=== PATIENT | male | born 1945 | race Caucasian/White ===

== ENCOUNTER → 2020-01-23 11:28 | Outpatient (BNVA) | payer MEDICARE, SELFPAY | PROVIDERS: PCP Nurse Practitioner Family; Visit Provider Nurse Practitioner Family | DX: M19.011 Primary osteoarthritis, right shoulder (principal) | CPT/HCPCS: 73030 ==

== ENCOUNTER → 2020-02-05 12:39 | Outpatient (BNVA) | payer MEDICARE, SELFPAY | PROVIDERS: PCP Nurse Practitioner Family; Visit Provider Nurse Practitioner Family | DX: S83.91XA Sprain of unspecified site of right knee, initial encounter (principal); X58.XXXA Exposure to other specified factors, initial encounter | CPT/HCPCS: 73562 ==

== ENCOUNTER 2020-03-19 12:44 | Outpatient (CLI) | payer MEDICARE, SELFPAY ==
--- NOTE | 2020-03-19 12:58 | MR_ITS ---
WS: [id number] MRI RIGHT SHOULDER HISTORY: PAIN IN RIGHT SHOULDER COMPARISON: Shoulder radiograph 01/23/2020 TECHNIQUE: Multiplanar sequences of the shoulder joint are submitted. Severe AC joint arthritis. Soft tissue and bone hypertrophy with significant encroachment upon the siegel praspinatus muscle and tendon. Large osteophytes extend superior and inferior from the joint space. F luid along the AC ligament. Small amount of fluid in the subacromial and subdeltoid bursa. No os acro mion. Humeral head is high riding and abuts the undersurface of the distal acromion with versus small osteophyte. Biceps tendon is not identified at the bicipital groove. There is a large amount of edema within the infraspinatus and supraspinatus muscles. Predominantly th e infraspinatus muscle. Sparing of the teres minor and subscapularis. There is also significant atrop hy of the supraspinatus most specifically. There are complete tears of the supraspinatus and infraspi natus tendons with retraction medial to the humeral head. Subscapularis tendon appears to be intact. Loss of cartilage over the humeral head. High riding humeral head from the glenoid. Moderate narrowin g of the glenohumeral joint space. Superior labrum is probably torn as it is not visualized. There is mild encroachment upon the subscapularis tendon. MR/MR shoulder RT wo con* [id number] IMPRESSION: 1. Severe AC joint arthritis with encroachment upon the supraspinatus muscle a nd tendon. 2. Complete tears with retraction of the infraspinatus and supraspinatus tendo ns. 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 Teres monse r has been spared. 3. Humeral head is high riding and abuts the undersurface of the distal acromi on. 4. Dislocated and possibly torn biceps tendon. Biceps tendon is not visualized at the bicipital groove.
== END 2020-03-19 12:45 | disposition home or self-care (01) ==
LOC: RADWPI 12:52
PROVIDERS: PCP Nurse Practitioner Family; Visit Provider Orthopaedic Surgery
DX: M13.811 Other specified arthritis, right shoulder (principal); M75.101 Unspecified rotator cuff tear or rupture of right shoulder, not specified as traumatic; S43.084A Other dislocation of right shoulder joint, initial encounter; X58.XXXA Exposure to other specified factors, initial encounter
CPT/HCPCS: 73221

== ENCOUNTER → 2020-06-26 09:25 | Outpatient (BNVA) | payer MEDICARE, SELFPAY | PROVIDERS: PCP Nurse Practitioner Family; Visit Provider Nurse Practitioner Family | DX: G56.01 Carpal tunnel syndrome, right upper limb (principal); M19.031 Primary osteoarthritis, right wrist | CPT/HCPCS: 73130 ==

== ENCOUNTER → 2020-07-16 11:37 | Outpatient (BNVA) | payer MEDICARE, SELFPAY | PROVIDERS: PCP Nurse Practitioner Family; Visit Provider Family Medicine | DX: E13.9 Other specified diabetes mellitus without complications (principal); M19.011 Primary osteoarthritis, right shoulder | CPT/HCPCS: 83036 ==

== ENCOUNTER → 2021-02-14 08:54 | Outpatient (BNVA) | payer MEDICARE, SELFPAY | PROVIDERS: PCP Nurse Practitioner Family; Visit Provider Nurse Practitioner Family | DX: E78.2 Mixed hyperlipidemia (principal) | CPT/HCPCS: 80061 ==

== ENCOUNTER → 2021-07-14 13:52 | Outpatient (BNVA) | payer MEDICARE, SELFPAY | PROVIDERS: PCP Nurse Practitioner Family; Visit Provider Internal Medicine Cardiovascular Disease | DX: I10 Essential (primary) hypertension (principal); E13.9 Other specified diabetes mellitus without complications; I49.9 Cardiac arrhythmia, unspecified; E78.5 Hyperlipidemia, unspecified; I44.7 Left bundle-branch block, unspecified; R53.83 Other fatigue | CPT/HCPCS: 99204 ==

== ENCOUNTER 2021-07-25 09:38 | Outpatient (CLI) | payer MEDICARE, SELFPAY ==
[2021-07-25 10:24] VITALS: BMI 24.1
--- NOTE | 2021-07-25 10:26 | NMCV_ITS ---
NM morales perf SPECT r/s* [id number] Gustavo Alford Age: 75 Gender: M : 1945 Exam Date: 07/25/2021 10:26 Ordering Phys: Dean iYn MD ([email or web address]) Technologist: ITZEL Blake Exam Location: [facility] Indications: SHORTNESS OF BREATH STRESS TEST Please [facility] IMAGE PROTOCOL Rest/Stress 1 Lexiscan Day Radiopharmaceutical Dose (mCi) Administration Site Administered by Rest: Tc-99m 10.7 IV ITZEL Nguyen Sestamibi Stress:Tc-99m 32.8 IV ITZEL Blake Sestamifrank Rest: 25-Jul-2021 60 Discovery 630 Stress: 25-Jul-2021 30 Discovery 630 0.4mg Lexiscan. Images obtained in supine and prone position. SPECT RESULTS Technical Quality: Excellent Raw Data Analysis: Normal Image Corrections: No attenuation or motion correction applied Summed Stress Score: 6 Summed Rest Score: 6 Summed Difference Score: 1 PERFUSION FINDINGS Moderate area of moderately decreased trCER uptake was noted in the mid anteroseptal, inferoseptal, apical septal and basal inferior wall segments. Some reversibility was noted in the basal inferior region, with the supine imaging. However with the prone imaging, there was no significant reversible defects. FUNCTIONAL RESULTS (calculated via Gated SPECT) Stress Image LV EF (%): 69 Stress EDV (mL):100 TID: 0.89 Stress ESV (mL):31 FUNCTIONAL FINDINGS: Segmental wall motion analysis revealing no gross wall motion abnormalities. IMPRESSIONS 1. Myocardial perfusion imaging revealing moderate area of persistent decreased tracer uptake in the inferoseptal, anteroseptal and apical septal regions, suggesting myocardial scarring in the distribution of the left anterior descending artery/right coronary artery. Small area of inconsistent reversible defect in the basal inferior wall region may suggest ischemia in the distribution of the right coronary artery. But the reliability of this finding is limited because of the inconsistency 2. Normal LV ejection fraction 69%. 3. LV wall motion analysis revealing no gross wall motion normalities. 4. Normal LV volume. No similar previous studies are available for comparison Dr Dean Yin MD [facility] (Electronically Signed) Final Date: 25 July 2021 15:56 S
--- NOTE | 2021-07-25 10:26 | ECG_ITS ---
[facility] Test Date: 2021-07-25 Pat Name: Gustavo Alford Department: Room: Gender: Male Translator Deaf: Yasmeen Reyes : 1945 Requested By: Dean Yin Order Number: [id number] [place] MD: Dean Yin M.D. Interpretive Statements NAME OF STUDY: LEXISCAN SESTAMIBI STRESS TEST INDICATION: [sob, ] PROCEDURE: At the baseline, the EKG revealed sinus bradycardia with nonspecific IVCD. Nonspecific ST-T changes in the inferior and lateral leads. Poor R wave progression.. The baseline blood pressure was 136/70 mm Hg with a heart rate of 56 beats/min. Lexiscan was infused over a period of 20 seconds. A total of 0.4 milligrams of Lexiscan was infused. The stress phase was continued for a total of 5 minutes. Heart rate at the end of the stress phase was 77 with a blood pressure 135/60. The EKG at the peak infusion revealed [no significant changes] []. Sestamibi was injected 20 seconds after the Lexiscan infusion. Blood pressure at the end of the recovery phase was 135/68 with a heart rate of 74 per minute. CONCLUSION: 1. No significant EKG changes with the[] LexiScan infusion[] 2. No LexiScan induced chest pain or cardiac arrhythmia [] 3. Normal blood pressure and heart rate response [] 4. Sestamibi/sestamibi perfusion scan pending; see separate report. Electronically Signed On 08-01-2021 11:31:45 CDT by Dean Yin M.D. [id number]
[2021-07-25] MEDS: regadenoson 0.4 Mg/5 ml Syringe IVP (11:30)
[2021-07-25 11:47] VITALS: BP 135/68; PULSE 72
== END 2021-07-25 09:39 | disposition home or self-care (01) ==
PROVIDERS: PCP Nurse Practitioner Family; Visit Provider Internal Medicine Cardiovascular Disease
DX: R06.02 Shortness of breath (principal)
CPT/HCPCS: 78452; 93017; A9500; J2785

== ENCOUNTER 2021-08-06 05:52 | Outpatient (CLI) | payer MEDICARE, SELFPAY ==
--- NOTE | 2021-08-06 06:15 | USCV_ITS ---
Gustavo Alford Age: 75 Gender: M : 1945 Exam Date: 08/06/2021 06:07 Ordering Phys: Dean Yin MD ([email or web address]) Technologist: RUPERTO Exam Location: [facility] [place] Indication: ARRHYTHMIA/ABNORMAL EKG BP: 120 / 80 HR: 57 Rhythm: Other Technical Quality: Adequate MEASUREMENTS (Male / Female) Normal Values 2D ECHO LV Diastolic Diameter PLAX 4.1 cm 4.2 - 5.9 / 3.9 - 5.3 cm LV Systolic Diameter PLAX 3.0 cm IVS Diastolic Thickness 1.8 cm 0.6 - 1.0 / 0.6 - 0.9 cm IVS Systolic Thickness 2.0 cm LVPW Diastolic Thickness 1.6 cm 0.6 - 1.0 / 0.6 - 0.9 cm LVPW Systolic Thickness 1.8 cm LVOT Diameter 2.0 cm LV Ejection Fraction 2D Teich 53.4 % LV Ejection Fraction MOD 2C 70.9 % LV Ejection Fraction 2C AL 71.7 % LA Diameter 3.0 cm LA Width 3.5 cm LA Height 3.3 cm RA Width 2.7 cm RA Height 4.3 cm Aorta at Sinotubular Diameter 3.0 cm M-MODE Aortic Annulus Diameter 2.6 cm LA Ao Ratio MM 1.1 MV E Point Septal Separation 0.3 cm DOPPLER AV Peak Velocity 112.3 cm/s LVOT Peak Velocity 83.0 cm/s AV Area Cont Eq vti 2.4 cm squared AV Area Cont Eq pk 2.4 cm squared MV Peak Velocity 99.0 cm/s MV Area PHT 3.0 cm squared Mitral E to A Ratio 0.8 MV E' Velocity 42.5 cm/s Mitral E to MV E' Ratio 10.8 Mitral E to LV E' Lateral Ratio 9.8 Mitral E to LV E' Septal Ratio 12.2 TV Peak E Velocity 51.0 cm/s Right Atrial Pressure 3.0 mmHg PV Peak Velocity 127.0 cm/s RV Acceleration Time 0.0 s RV Ejection Time 0.3 s RV AcT/ET 0.1 FINDINGS Left Ventricle Normal left ventricular size and systolic function, EF 68 %. Moderate left ventricular hypertrophy. No regional wall motion abnormalities. Grade I/IV diastolic dysfunction (abnormal relaxation filling pattern), normal to mildly elevated filling pressures. Right Ventricle The right ventricle is normal in size and function. Right Atrium The right atrium is normal in size. Left Atrium The left atrium is normal in size. Mitral Valve No gross abnormalities noted Aortic Valve Thickened aortic valve. Tricuspid Valve No gross abnormalities noted Pulmonic Valve Pulmonic valve not well visualized. Pericardium Normal pericardium without effusion. Aorta Normal ascending aorta dimension. CONCLUSIONS Normal left ventricular size and systolic function, EF 68 %. Moderate left ventricular hypertrophy. No regional wall motion abnormalities. Grade I/IV diastolic dysfunction (abnormal relaxation filling pattern), normal to mildly elevated filling pressures. Thickened aortic valve. No significant stenotic or regurgitant lesions There is no pericardial effusion. No previous study is available for comparison. Dr Dean Yin MD [facility] (Electronically Signed) Final Date: 06 August 2021 20:40 S
== END 2021-08-06 05:53 | disposition home or self-care (01) ==
LOC: RAD 05:56
PROVIDERS: Visit Provider Internal Medicine Cardiovascular Disease
DX: R06.00 Dyspnea, unspecified (principal)
CPT/HCPCS: 93306

== ENCOUNTER → 2021-12-23 08:18 | Outpatient (BNVA) | payer MEDICARE, SELFPAY | PROVIDERS: PCP Nurse Practitioner; Visit Provider Nurse Practitioner | DX: R53.83 Other fatigue (principal); E78.5 Hyperlipidemia, unspecified; E11.9 Type 2 diabetes mellitus without complications; I10 Essential (primary) hypertension; Z13.6 Encounter for screening for cardiovascular disorders | CPT/HCPCS: 80053; 80061; 82306; 83036; 84443; 85025 ==

== ENCOUNTER → 2022-12-10 11:04 | Outpatient (BNVA) | payer MEDICARE, SELFPAY | PROVIDERS: PCP Nurse Practitioner; Visit Provider Nurse Practitioner Family | DX: N39.0 Urinary tract infection, site not specified (principal); R53.83 Other fatigue; E11.9 Type 2 diabetes mellitus without complications; J06.9 Acute upper respiratory infection, unspecified; F03.90 Unspecified dementia, unspecified severity, without behavioral disturbance, psychotic disturbance, mood disturbance, and anxiety | CPT/HCPCS: 80053; 81000; 83036; 84439; 84443; 85025 ==

== ENCOUNTER → 2022-12-14 10:05 | Outpatient (BNVA) | payer MEDICARE, SELFPAY | PROVIDERS: PCP Nurse Practitioner; Visit Provider Nurse Practitioner | DX: R53.83 Other fatigue (principal); D72.819 Decreased white blood cell count, unspecified | CPT/HCPCS: 85025; 87426 ==

== ENCOUNTER 2022-12-15 12:08 | Emergency (ER) | payer MEDICARE, SELFPAY ==
[2022-12-15 12:34] VITALS: BMI 22.5
[2022-12-15 12:37] VITALS: BP 139/64; PULSE 59; RESP 15; TEMP 36.7; O2SAT 96
--- NOTE | 2022-12-15 12:41 | XR_ITS ---
WS: [id number] Exam: XR chest 1V portable [id number] Date/Time of Exam: 12/15/2022 12:45 PM Reason For Exam: COVID, not getting better No priors. There are groundglass infiltrates in the mid and lower RIGHT lung. The LEFT lung is clear. Cardiomediastinal silhouette is unremarkable for technique. No pleural effusion. Regional bony eleme nts are intact. IMPRESSION: 1. Groundglass infiltrates in the mid and lower RIGHT lung. No comparison exams. These changes could be chronic or could represent active pneumonia. COVID-pneumonia could have this appearance.
--- NOTE | 2022-12-15 12:51 | W.ED.COVID ---
HPI - COVID General: Chief Complaint: COVID symptoms Stated Complaint: tested + covid, weak, unable to eat or drink Time Seen by Provider: 12/15/22 12:33 History of Present Illness: 77-year-old male with dementia presents with his who is the primary historian. Patient tends to look to his for help answering questions. estimates that he has been sick since approximately November 30. He went to the clinic yesterday because he was not improving and tested positive for COVID-19. He had previously been seen on the and had a suppressed white blood cell count. At that time he was placed on Paxlovid and Augmentin empirically. Therefore he has been on antibiotics for about 3 days. states that at the beginning he had sore throat, low energy, low appetite, fever, and diarrhea. She reports that he just cannot seem to shake it. He continues to have fatigue, worsening of his dementia, lightheadedness, poor appetite. notes that he has not had much in the way of respiratory symptoms and his last fever has been greater than 48 hours ago. She began to get worried that there is something else going on and wanted to have a little bigger work-up to make sure that his organs and lungs and electrolytes were all okay. Patient is not a great historian but currently states other than fatigue he has no symptoms COVID 19 common symptoms: positive diarrhea; negative productive cough, dyspnea, nausea or vomiting COVID 19 other sytmptoms: negative chest pain COVID Results: SARS-CoV-2 Antigen (Rapid) positive (Negative) 12/14/22 10:05 Review of Systems General: Reports: 10 or more systems reviewed and unremarkable except in HPI and below Card: Reports: lightheadedness; Denies: chest pain, edema, swelling of feet/ankles, syncope or dyspnea on exertion Resp: Denies: dyspnea, productive cough, wheezing, pain on inspiration, hemoptysis or chest congestion GI: Reports: diarrhea; Denies: abdominal pain, nausea, vomiting, bloating, GI cramping or pain on defecation : Denies: urinary frequency Musc: Denies: neck pain, back pain, extremity pain, extremity swelling, joint pain or joint swelling Skin/Breast: Denies: rash or erythema Psych: Reports: loss of interest, change in appetite, memory loss and difficulty concentrating PFSH ED PFSH: Medical History Arrhythmia Diabetes 1.5, managed as type 1 Essential hypertension Gout Hypothyroid Osteoarthritis of right shoulder Right knee sprain Type 2 diabetes mellitus without complications Vitamin D deficiency Surgical History Hx of cataract extraction S/P arthroscopy of left knee Status post lumbar surgery Approximately 20+ years ago L4-L5 Family History Mother CAD (coronary artery disease) Family/Other CAD (coronary artery disease) Diabetes Lung disease Suicide Son Suicide Denies family history of Clotting disorder Dementia Chronic kidney disease (CKD) Anesthesia complication Bleeding disorder Cancer Stroke Social History Smoking and tobacco status: never smoked Alcohol intake: former Substance/Drug Use: never Physical Exam Const: COMMON NORMALS: no limitations, alert and well nourished EXAM LIMITATIONS: no altered mental status HENMT: COMMON NORMALS: normocephalic, atraumatic and external ears normal HEAD & SCALP: normocephalic and atraumatic EXTERNAL EAR: Yes external ears normal MOUTH: no muffled voice Eye: COMMON NORMALS: EOMs intact bilaterally, conjunctivae normal and no scleral icterus CONJUNCTIVA: Yes conjunctivae normal Neck/C-Spine: COMMON NORMALS: no JVD GENERAL: Yes normal visual inspection and Yes trachea midline Resp: COMMON NORMALS: normal respiratory effort, No retractions and No use of accessory muscles AUSCULTATION: rales (Minimal, bases, clear after 3 inspirations) Cardio: COMMON NORMALS: no JVD, regular rate and regular rhythm RATE: regular rate RHYTHM: regular rhythm GI: COMMON NORMALS: Soft to palpation and non-tender PALPATION: Yes Soft to palpation and No Guarding due to palpation present (GI) Extremity: COMMON NORMALS: normal to inspection Neuro: COMMON NORMALS: moves all extremities, no focal motor deficits and no sensory deficits noted SENSORIUM/ORIENTATION: Yes alert SPEECH: speech normal Psych: COMMON NORMALS: Normal thought process present, cooperative, normal affect and speech normal; negative for mental status grossly normal (Patient has a very poor memory especially for short-term recall) SPEECH: Yes normal speech THOUGHT PROCESS: Normal thought process present Skin: COMMON NORMALS: no rashes or lesions noted, turgor normal, no jaundice, no petechiae and no mottling GENERAL SKIN EXAM: no rashes or lesions noted and turgor normal Course Vital Signs: Vital signs: Vital Signs Temperature 98.0 F 12/15/22 12:37 Pulse Rate 59 L 12/15/22 12:37 Respiratory Rate 15 12/15/22 12:37 Blood Pressure 139/64 12/15/22 12:37 Pulse Oximetry 95 12/15/22 13:00 Oxygen Delivery Me thod Room Air 12/15/22 13:00 [facility] - COVID Medical Decision Making 77-year-old male with known coronavirus infection. He is on antivirals and antibiotics. He is eating and drinking but not very much. He surprisingly he has 2+ pulses, warm extremities, and seems to have okay skin turgor. The main complaint seems to be his overwhelming fatigue and the apparent worsening of his dementia since the COVID infection. I have ordered 2 L of IV fluids, some Toradol and Tylenol, Zofran, and we will check CBC, CMP, magnesium, CRP. I did order a chest x-ray as he had a few rales on his initial inspiration. He is 96% on room air at this time. Although I entered the situation with an open mind, I do not think there is a secondary pathology that is causing the symptoms. They do seem to be very well in keeping with COVID infection in an elderly patient with dementia. Update Chest x-ray single view my interpretation: Patient has interstitial ground glass infiltrates right greater than left. No consolidations. No significant effusions. No pneumothorax. CRP elevated to 44 and Ferritin 1121 representing significant bodily inflammation suggestive of acute phase of infection. Mild low NaCl with associated low osmolality. Only mildly changed from prior Na. BUN and creatinine normal. Other electrolytes okay. Patient is already taking Paxlovid and his prescriber has given him Augmentin. There is nothing else at this point that I can do to intervene other than provide the IV fluids here and Zofran and Tylenol for discharge. Because of his age and dementia status, hesitate to give any steroids. Patient can be discharged and follow-up with PCP. Lab Data 12/15/22 13:50 12/15/22 13:50 Laboratory Results WBC 5.35 10^3/uL (3.29-11.43) 12/15/22 13:50 Corrected WBC Cancelled 12/15/22 13:10 RBC 4.08 10^6/uL (3.85-5.65) 12/15/22 13:50 Hgb 13.20 g/dL (11.27-16.99) 12/15/22 13:50 Hct 38.8 % (37-53) 12/15/22 13:50 MCV 95.1 fl (82-101) 12/15/22 13:50 MCH 32.4 pg (27-33) 12/15/22 13:50 MCHC 34.0 g/dL (30-55) 12/15/22 13:50 RDW 11.9 % (12.1-15.1) L 12/15/22 13:50 Plt Count 225 10^3/cmm (157-399) 12/15/22 13:50 MPV 10.0 fL (7.4-10.4) 12/15/22 13:50 Gran % Cancelled 12/15/22 13:10 Neut % (Auto) 61.5 % 12/15/22 13:50 Lymph % (Auto) 19.6 % 12/15/22 13:50 [place] % (Auto) 14.2 % 12/15/22 13:50 Eos % (Auto) 0.4 % 12/15/22 13:50 Baso % (Auto) 0.4 % 12/15/22 13:50 Neut # (Auto) 3.29 10^3/uL (1.8-7.7) 12/15/22 13:50 Lymph # (Auto) 1.1 10^3/uL (0.8-4.8) 12/15/22 13:50 [place] # (Auto) 0.8 10^3/uL (0.2-0.9) 12/15/22 13:50 Eos # (Auto) 0.0 10^3/uL (0.0-0.8) 12/15/22 13:50 Baso # (Auto) 0.0 10^3/uL (0.0-0.1) 12/15/22 13:50 Absolute Gran (auto) Cancelled 12/15/22 13:10 Nucleated RBC % (auto) 0 % 12/15/22 13:50 Nucleated RBCs # 0.0 /100WBC 12/15/22 13:50 Sodium 131 mmol/L (136-145) L 12/15/22 13:50 Potassium 3.5 mmol/L (3.5-5.1) 12/15/22 13:50 Chloride 96 mmol/L (98-107) L 12/15/22 13:50 Carbon Dioxide 25 mmol/L (22-29) 12/15/22 13:50 Anion Gap 13.5 (5-19) 12/15/22 13:50 BUN 13 mg/dL (8-23) 12/15/22 13:50 Creatinine 0.9 mg/dL (0.7-1.2) 12/15/22 13:50 GFR Calculation Not Reportable 12/15/22 13:50 Glucose 132 mg/dL (65-115) H 12/15/22 13:50 Calculated Osmolality 274 mOsm/kg (285-295) L 12/15/22 13:50 Lactic Acid 1.3 mmol/L (0.5-2.2) 12/15/22 13:10 Calcium 8.1 mg/dL (8.5-10.5) L 12/15/22 13:50 Magnesium 1.9 mg/dL (1.7-2.3) 12/15/22 13:50 Ferritin 1121 ng/mL (30-400) H 12/15/22 13:50 Total Bilirubin 0.9 mg/dL (0.15-1.2) 12/15/22 13:50 AST 29 U/L (0-40) 12/15/22 13:50 ALT 25 U/L (0-41) 12/15/22 13:50 Alkaline Phosphatase 73 U/L (40-130) 12/15/22 13:50 C-Reactive Protein 44.8 mg/L (0.0-4.9) H 12/15/22 13:50 Total Protein 6.6 g/dL (6.6-8.7) 12/15/22 13:50 Albumin 3.1 g/dL (3.5-5.2) L 12/15/22 13:50 Globulin 3.5 g/dL (1.3-4.6) 12/15/22 13:50 SARS-CoV-2 Antigen (Rapid) positive (Negative) 12/14/22 10:05 Discharge Plan Discharge Patient Disposition: Home Clinical Impression: COVID-19 virus infection, Pneumonia due to COVID-19 virus Condition: Stable Prescriptions: New ondansetron 4 mg tablet,disintegrating 4 mg PO Q6H PRN (Reason: nausea and vomiting) Qty: 20 0RF acetaminophen 500 mg capsule 500 mg PO Q6H PRN (Reason: fever or pain) Qty: 30 0RF No Action aspirin 81 mg tablet,delayed release (DR/EC) 81 mg PO QAM sildenafil [Viagra] 50 mg tablet 50 mg PO DAILY MDD 50mg daily PRN (Reason: sexual activity) 90 Days Qty: 90 1RF Hold Instructions: Doctor's Order Rx Instructions: administer 30 minutes to 4 hours before activity amoxicillin-pot clavulanate 875-125 mg tablet 1 tab PO BID Qty: 14 0RF Rx Instructions: for 7 days (rx filled 12/10/22) Paxlovid 150-100 mg tablets,dose pack See Rx Instructions PO PER PKG DIR Qty: 20 0RF Rx Instructions: PO PER PKG DIR (DME) True Metrix Glucose Test Strip Strip See Rx Instructions .Route Qty: 100 5RF Rx Instructions: use to check blood sugar daily hydrocortisone 2.5 % cream 1 applic topical BID PRN (Reason: skin irritation) Qty: 30 2RF naproxen 500 mg tablet 500 mg PO BID PRN (Reason: Pain) benazepril-hydrochlorothiazide 10-12.5 mg tablet 1 tab PO QAM memantine 10 mg tablet 10 mg PO QAM Farxiga 10 mg tablet 10 mg PO QAM multivitamin Tablet 1 tab PO DAILY Imodium 2 mg Capsule 4 mg PO QAM Vitamin B-12 1,000 mcg Tablet 1,000 mcg PO DAILY atorvastatin 40 mg tablet 40 mg PO QAM Aricept 10 mg tablet 10 mg PO QAM levothyroxine 150 mcg tablet 150 mcg PO QAM Discharge Orders: Discharge ED (Routine); Ordered 12/15/22 Ordered By: Abdi Saavedra Referrals: Brenda Hamilton FNP [Primary Care Provider] - 4-7 days Patient Instructions: Opioid Safety, Pain Management Coding Level of Care Code ED Diploma Pharmacy Technician for g Chinmay
[2022-12-15 13:00] VITALS: O2SAT 95
[2022-12-15] MEDS: sodium chloride 0.9% 1,000 ML 999 ML IV (13:23)
[2022-12-15] MEDS: acetaminophen 1,000 MG/100 ML PIGGYBACK 400 MG IV (13:23)
[2022-12-15] MEDS: ketorolac 30 mg/mL INJ 10 MG IVP (13:24)
[2022-12-15] MEDS: ondansetron 2 mg/ML SDV 2 mL 4 MG IV (13:24)
[2022-12-15 13:38] LABS: Lactic Sepsis W/Reflex 1.3 mmol/L (0.5-2.2)
[2022-12-15 14:00] LABS: Basophils % 0.4 %; Eosinophils % 0.4 %; Hematocrit 38.8 % (37-53); Lymphocytes # 1.1 10^3/uL (0.8-4.8); Lymphocytes % 19.6 %; Mean Corpuscular Hemoglobin 32.4 pg (27-33); Mean Corpuscular Volume 95.1 fl (82-101); Monocytes # 0.8 10^3/uL (0.2-0.9); Monocytes % 14.2 %; Neutrophils # 3.29 10^3/uL (1.8-7.7); Neutrophils % 61.5 %; Nucleated Red Blood Cells % 0 %; Platelet Count 225 10^3/cmm (157-399); Red Blood Count 4.08 10^6/uL (3.85-5.65); Red Cell Distribution Width 11.9 % (12.1-15.1); White Blood Count 5.35 10^3/uL (3.29-11.43)
[2022-12-15 14:14] LABS: Alanine Aminotransferase 25 U/L (0-41); Albumin Level 3.1 g/dL (3.5-5.2); Alkaline Phosphatase 73 U/L (40-130); Anion Gap 13.5 (5-19); Aspartate Amino Transferase 29 U/L (0-40); Blood Urea Nitrogen 13 mg/dL (8-23); C Reactive Protein 44.8 mg/L (0.0-4.9); Calcium 8.1 mg/dL (8.5-10.5); Carbon Dioxide 25 mmol/L (22-29); Chloride 96 mmol/L (98-107); Globulin 3.5 g/dL (1.3-4.6); Glucose 132 mg/dL (65-115); Magnesium 1.9 mg/dL (1.7-2.3); Osmolality Calculated 274 mOsm/kg (285-295); Potassium 3.5 mmol/L (3.5-5.1); Sodium 131 mmol/L (136-145); Total Bilirubin 0.9 mg/dL (0.15-1.2); Total Protein 6.6 g/dL (6.6-8.7)
[2022-12-15 14:36] LABS: Ferritin 1121 ng/mL (30-400)
[2022-12-15 15:31] VITALS: BP 101/75; PULSE 53; O2SAT 96
== END 2022-12-15 15:33 | disposition home or self-care (01) ==
PROVIDERS: Emergency Provider Emergency Medicine; PCP Nurse Practitioner
DX: U07.1 COVID-19 (principal); J12.82 Pneumonia due to coronavirus disease 2019; Z79.82 Long term (current) use of aspirin; I10 Essential (primary) hypertension; E11.9 Type 2 diabetes mellitus without complications
CPT/HCPCS: 71045; 80053; 82728; 83605; 83735; 85025; 86140; 96374; 96375; 99284; J0131; J1885; J2405; J7030

== ENCOUNTER → 2023-05-13 13:42 | Outpatient (BNVA) | payer MEDICARE, SELFPAY | PROVIDERS: PCP Nurse Practitioner Family; Visit Provider Orthopaedic Surgery | DX: M19.011 Primary osteoarthritis, right shoulder (principal) | CPT/HCPCS: 73030 ==

== ENCOUNTER → 2023-06-09 11:46 | Outpatient (BNVA) | payer MEDICARE, SELFPAY | PROVIDERS: PCP Nurse Practitioner Family; Visit Provider Nurse Practitioner Family | DX: I10 Essential (primary) hypertension (principal); E11.9 Type 2 diabetes mellitus without complications; N40.0 Benign prostatic hyperplasia without lower urinary tract symptoms | CPT/HCPCS: 80053; 80061; 81000; 82728; 83036; 83550; 85025; G0103 ==

== ENCOUNTER → 2023-09-24 15:38 | Outpatient (BNVA) | payer MEDICARE, SELFPAY | PROVIDERS: PCP Nurse Practitioner Family; Visit Provider Nurse Practitioner Family | DX: S83.8X1A Sprain of other specified parts of right knee, initial encounter (principal); X58.XXXA Exposure to other specified factors, initial encounter; M25.561 Pain in right knee; M17.11 Unilateral primary osteoarthritis, right knee | CPT/HCPCS: 73562 ==

== ENCOUNTER 2023-10-26 09:47 | Outpatient (CLI) | payer MEDICARE, SELFPAY ==
--- NOTE | 2023-10-26 10:15 | MR_ITS ---
WS: [id number] MRI RIGHT KNEE NONCONTRAST TECHNIQUE: Axial PD, coronal PD fat sat, coronal PD, sagittal PD, and sagittal PD fat-sat images obta ined. CLINICAL INFORMATION: M25.561 - Pain in right knee COMPARISON: None. FINDINGS: Advanced degenerative arthritis medial joint compartment with hypertrophic changes along the joint li ne. Distal quadriceps and patellar tendons are intact. Hypertrophic patella. Advanced chondromalacia patella with a small amount of subchondral edema. Advanced narrowing of the patellofemoral articulati on. Medial and lateral patellar retinaculum intact. Small suprapatellar effusion. Mucoid degeneration of the ACL which appears intact. PCL appears intact. Calcified loose body anterio rly along the ACL insertion. Calcified loose body measures 1.5 x 1.1 cm. Ossified loose body along th e dorsal PCL. Medial and lateral collateral ligaments are intact. Normal popliteal fossa. Normal lateral meniscus. Advanced narrowing medial joint compartment with chronic thinning of the med ial meniscus. Chronic appearing high-grade tear of the medial meniscus with peripheral extrusion. MR/MR knee RT wo con* [id number] IMPRESSION: 1. Mucoid degeneration of the ACL. PCL appears intact. 2. Advanced narrowing medial joint compartment with [id number] articulation and subchondral edema. Grade IV chondromalacia. 3. Chronic thinning with chronic tear of the medial meniscus with peripheral e xtrusion. 4. Grade IV chondromalacia patella with small suprapatellar effusion. 5. Calcified loose body anteriorly along the ACL insertion. Calcified loose patrice dy measures 1.5 x 1.1 cm. Ossified loose body along the dorsal PCL. Outbridge grading: grade IV: full-thickness cartilage loss with underlying bone reactive changes
== END 2023-10-26 09:48 | disposition home or self-care (01) ==
LOC: RAD 09:48
PROVIDERS: PCP Nurse Practitioner Family; Visit Provider Nurse Practitioner Family
DX: M25.561 Pain in right knee (principal); S83.8X1A Sprain of other specified parts of right knee, initial encounter; M22.41 Chondromalacia patellae, right knee; M67.863 Other specified disorders of tendon, right knee; Y99.9 Unspecified external cause status
CPT/HCPCS: 73721

== ENCOUNTER → 2023-12-02 10:08 | Outpatient (BNVA) | payer MEDICARE, SELFPAY | PROVIDERS: PCP Nurse Practitioner Family; Visit Provider Student in an Organized Health Care Education/Training Program | DX: M17.11 Unilateral primary osteoarthritis, right knee; M25.561 Pain in right knee; M25.562 Pain in left knee | CPT/HCPCS: 73560; 73565; 99204 ==

== ENCOUNTER → 2024-01-06 08:04 | Outpatient (BNVA) | payer MEDICARE, SELFPAY | PROVIDERS: PCP Nurse Practitioner Family; Visit Provider Physician Assistant | DX: M17.11 Unilateral primary osteoarthritis, right knee (principal) | CPT/HCPCS: 20610; 99213; J7318 ==

== ENCOUNTER 2024-01-06 10:15 | Outpatient (CLI) | payer MEDICARE, SELFPAY | END 2024-01-06 10:16 | disposition home or self-care (01) | LOC: SPT 10:15 | PROVIDERS: PCP Nurse Practitioner Family; Visit Provider Physician Assistant | DX: Z46.89 Encounter for fitting and adjustment of other specified devices (principal); M23.91 Unspecified internal derangement of right knee; S83.8X1D Sprain of other specified parts of right knee, subsequent encounter; X58.XXXD Exposure to other specified factors, subsequent encounter; M17.11 Unilateral primary osteoarthritis, right knee | CPT/HCPCS: 97760; L1851 ==

== ENCOUNTER 2024-03-21 12:43 | Emergency (ER) | payer MEDICARE, SELFPAY ==
[2024-03-21 12:44] VITALS: BP 159/79; PULSE 70; RESP 18; TEMP 36.4; O2SAT 97; BMI 22.4
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
[2024-03-21 12:56] VITALS: O2SAT 99
[2024-03-21 14:44] VITALS: BP 155/62; PULSE 73; O2SAT 98
== END 2024-03-21 14:45 | disposition home or self-care (01) ==
PROVIDERS: Emergency Provider Family Medicine; PCP Nurse Practitioner Family
DX: S43.401A Unspecified sprain of right shoulder joint, initial encounter (principal); V49.59XA Passenger injured in collision with other motor vehicles in traffic accident, initial encounter; E11.9 Type 2 diabetes mellitus without complications; I10 Essential (primary) hypertension
CPT/HCPCS: 73030; 99283

== ENCOUNTER → 2024-07-07 07:54 | Outpatient (BNVA) | payer MEDICARE, SELFPAY | PROVIDERS: PCP Nurse Practitioner Family; Visit Provider Physician Assistant | DX: M17.11 Unilateral primary osteoarthritis, right knee (principal); M23.91 Unspecified internal derangement of right knee; Z71.89 Other specified counseling | CPT/HCPCS: 20610; 99213; J7318 ==

== ENCOUNTER → 2024-08-02 09:14 | Outpatient (BNVA) | payer MEDICARE, SELFPAY | PROVIDERS: PCP Nurse Practitioner Family; Visit Provider Nurse Practitioner Family | DX: I10 Essential (primary) hypertension (principal); N40.0 Benign prostatic hyperplasia without lower urinary tract symptoms; E11.9 Type 2 diabetes mellitus without complications | CPT/HCPCS: 80053; 80061; 81000; 83036; 85025; 85651; G0103 ==

== ENCOUNTER 2024-11-27 17:40 | Emergency (ER) | payer MEDICARE, SELFPAY ==
[2024-11-27 17:52] VITALS: BP 97/51; PULSE 40; RESP 16; TEMP 36.3; O2SAT 97; BMI 22.8
--- NOTE | 2024-11-27 17:59 | ECG_ITS ---
[email or web address] 2024-11-27 Pat Name: Gustavo Alford Department: Room: Gender: Male Director Consumer Affairs: : 1945 Requested By: Shira Gallegos Order Number: [id number] Everett MD: Dean Yin M.D. Measurements Intervals [place] Rate: 68 P: 62 [place]: 146 QRS: -68 QRSD: 161 T: 81 QT: 476 QTc: 507 Interpretive Statements SINUS RHYTHM WITH FREQUENT VENTRICULAR PREMATURE COMPLEXES WITH OCCASIONAL SUPRAVENTRICULAR PREMATURE COMPLEXES LEFT AXIS DEVIATION [QRS AXIS < -30] INTRAVENTRICULAR CONDUCTION DELAY [130+ ms QRS DURATION] No previous ECG available for comparison Electronically Signed On 11-27-2024 22:44:26 CDT by Dean Yin M.D. [id number] [id number]
--- NOTE | 2024-11-27 18:11 | ED_ITS ---
HPI - Arrhythmia/Palpitations 2 General: Chief Complaint: Arrhythmia/Palpitations Stated Complaint: R arm pain through fingers, chills, low hr Time Seen by Provider: 11/27/24 18:04 History of Present Illness: 79-year-old male with a history of demen tia, type 2 diabetes, hypothyroidism, hypertension, and gout who presents the emergency room after having had diaphoresis and palpitations at around 4 AM this morning. He went to his doctor's office this afternoon and they sent him to the emergency room. He had some pain in his right arm. He has a bad right shoulder and this is not uncommon but he was diaphoretic the states and so she brought him to the doctor this afternoon who then sent him here for testing . He currently has no complaints. states he will not remember what happened this morning. Currently no chest pain. No shoulder pain. No abdominal pain. No vomiting. He does have frequent PVCs on EKG. Related Data Home Medications ?Medication ?Instructions ?Recorded ?Confirmed aspirin 81 mg tablet,delayed 81 mg PO QAM 07/08/2103/13 release Previous Rx's ?Medication ?Instructions ?Recorded blood sugar diagnostic (True #100 ea 09/16/23 Metrix Glucose Test Strip) blood-glucose meter (Accu-Chek #1 ea 01/03/24 Guide Me Glucose Meter) right knee medial court assistant brace #1 ea 01/06/24 diclofenac sodium 75 mg 75 mg PO Q12H PRN pain #20 t abs 03/21/24 tablet,delayed release dapagliflozin propanediol 10 mg 10 mg PO DAILY #30 tab s 10/27/24 tablet (Farxiga) atorvastatin 40 mg tablet See Rx Instructions .Route 0 10/31/24 .COMPLEX #90 tabs benazepril 10 See Rx Instructions .Route 0 10/31/24 mg-hydrochlorothiazide 12.5 mg .COMPLEX #90 tabs tablet donepezil 10 mg tablet See Rx Instructions .Route 0 10/31/24 .COMPLEX #90 tabs levothyroxine 150 mcg tablet 150 mcg PO DAILY #90 tabs 10/31/24 memantine 10 mg tablet See Rx Instructions .Route 0 10/31/24 .COMPLEX #90 tabs Allergies Allergy/AdvReac Type Severity Reaction Status Date / Time No Known Allergies Allergy Verified 11/27/24 15:17 Review of Systems 2 Narrative: Constitutional symptoms: Negative except as documented in HPI. Skin symptoms: Negative except as documented in HPI. Eye symptoms: Negative except as documented in HPI. ENMT symptoms: Negative except as documented in HPI. Respiratory symptoms: Negative except as documented in HPI. Cardiovascular symptoms: Negative except as documented in HPI. Gastrointestinal symptoms: Negative except as documented in HPI. Genitourinary symptoms: Negative except as documented in HPI. Musculoskeletal symptoms: Negative except as documented in HPI. Neurologic symptoms: Negative except as documented in HPI. Psychiatric symptoms: Negative except as documented in HPI. Endocrine symptoms: Negative except as documented in HPI. PFSH ED 2 PFSH: Medical History (Updated 11/27/24 @ 20:06 by Shira Pang MD) Fatigue Cellulitis, toe Right knee pain Vitamin D deficiency Arrhythmia Right knee sprain Osteoarthritis of right shoulder Hypothyroid Essential hypertension Gout Diabetes 1.5, managed as type 1 Type 2 diabetes mellitus without complications Surgical History Hx of cataract extraction S/P arthroscopy of left knee Status post lumbar surgery Approximately 20+ years ago L4-L5 Family History Mother CAD (coronary artery disease) Family/Other CAD (coronary artery disease) Diabetes Lung disease Suicide Son Suicide Denies family history of Clotting disorder Dementia Chronic kidney disease (CKD) Anesthesia complication Bleeding disorder Cancer Stroke Social History Smoking and tobacco/nicotine status: never used tobacco/nicotine Alcohol intake: former Substance/Drug Use: never Current occupation: retired Physical Exam 2 Narrative: EXAM NARRATIVE: General: Alert, no acute distress. Skin: Warm, dry. Head: Normocephalic, atraumatic. Neck: Supple, trachea midline. Eye: Extraocular movements are intact. Ears, nose, mouth and throat: mucosa moist. Cardiovascular: Regular, Normal peripheral perfusion. Respiratory: Lungs are clear to auscultation, respirations are non-labored, breath sounds are equal, Symmetrical chest wall expansion. Gastrointestinal: Soft, Nontender, Non distended Musculoskeletal: Normal ROM, no deformity. Neurological: Alert and oriented to his , No focal neurological deficit observed. Psychiatric: Cooperative, appropriate mood & affect. Course 2 Vital Signs: Vital signs: Vital Signs Temperature 97.4 F L 11/27/24 17:52 Pulse Rate 62 11/27/24 19:12 Respiratory Rate 17 11/27/24 19:12 Blood Pressure 126/70 11/27/24 19:12 Pulse Oximetry 96 11/27/24 19:12 Oxygen Delivery Me thod Room Air 11/27/24 18:21 MDM - Arrhythmia/Palpitations Medical Decision Making Differential diagnosis for patient with chest pain includes but is not limited to and based on the above HPI, review of systems and physical exam: Pneumonia. unstable angina. angina. Acute coronary syndrome / [place]. Pulmonary embolism. Costochondritis / musculoskeletal. Pleurisy. Pericarditis. Esophageal spasm. Pancreatis. Cholecystitis. Orders placed to evaluate differential diagnosis based on the above differential, HPI and physical exam EKG: Time 1759. Rate 68. Normal sinus rhythm, No ST-T changes, frequent PVCs, normal ID & QRS intervals, This was reviewed and interpreted by myself the ER physician at 1805 Lab Review: Laboratory results were reviewed and interpreted by myself the emergency room physician. Lab work is unremarkable. No leukocytosis. No anemia. No renal failure. Serial cardiac markers are negative. Chest x-ray: No acute process. No infiltrate. No pneumothorax. This was reviewed and interpreted by myself the emergency room physician. I also reviewed the radiology report. I reviewed the patient's medical record. Reexamination: Patient remained stable. No increased work of breathing. No altered mental status. No focal motor deficits. Assessment and plan: Noncardiac chest pain - Discharged home - Discussed plan with patient. Answered any questions. - Evaluation and treatment of this problem were appropriate in the emergency setting. Lab Data 11/27/24 18:09 11/27/24 18:09 Radiology Impressions Chest X-Ray 11/27/24 18:15 IMPRESSION: No acute findings. Laboratory Results WBC 6.65 10^3/uL (3.29-11.43) 11/27/24 18:09 RBC 4.44 10^6/uL (3.85-5.65) 11/27/24 18:09 Hgb 14.20 g/dL (11.27-16.99) 11/27/24 18:09 Hct 41.7 % (37-53) 11/27/24 18:09 MCV 93.9 fl (82-101) 11/27/24 18:09 MCH 32.0 pg (27-33) 11/27/24 18:09 MCHC 34.1 g/dL (30-55) 11/27/24 18:09 RDW 11.9 % (12.1-15.1) L 11/27/24 18:09 Plt Count 231 10^3/cmm (157-399) 11/27/24 18:09 MPV 10.8 fL (7.4-10.4) H 11/27/24 18:09 Neut % (Auto) 56.0 % 11/27/24 18:09 Lymph % (Auto) 29.2 % 11/27/24 18:09 [place] % (Auto) 10.8 % 11/27/24 18:09 Eos % (Auto) 2.3 % 11/27/24 18:09 Baso % (Auto) 0.9 % 11/27/24 18:09 Neut # (Auto) 3.73 10^3/uL (1.8-7.7) 11/27/24 18:09 Lymph # (Auto) 1.9 10^3/uL (0.8-4.8) 11/27/24 18:09 [place] # (Auto) 0.7 10^3/uL (0.2-0.9) 11/27/24 18:09 Eos # (Auto) 0.2 10^3/uL (0.0-0.8) 11/27/24 18:09 Baso # (Auto) 0.1 10^3/uL (0.0-0.1) 11/27/24 18:09 Nucleated RBC % (auto) 0 % 11/27/24 18:09 Nucleated RBCs # 0.0 /100WBC 11/27/24 18:09 Sodium 136 mmol/L (136-145) 11/27/24 18:09 Potassium 4.0 mmol/L (3.5-5.1) 11/27/24 18:09 Chloride 101 mmol/L (98-107) 11/27/24 18:09 Carbon Dioxide 23 mmol/L (22-29) 11/27/24 18:09 Anion Gap 16.0 (5-19) 11/27/24 18:09 BUN 15 mg/dL (8-23) 11/27/24 18:09 Creatinine 1.0 mg/dL (0.7-1.2) 11/27/24 18:09 GFR Calculation Not Reportable 11/27/24 18:09 Glucose 170 mg/dL (65-115) H 11/27/24 18:09 Calculated Osmolality 287 mOsm/kg (285-295) 11/27/24 18:09 Calcium 9.0 mg/dL (8.5-10.5) 11/27/24 18:09 Total Bilirubin 1.1 mg/dL (0.15-1.2) 11/27/24 18:09 AST 20 U/L (0-40) 11/27/24 18:09 ALT 17 U/L (0-41) 11/27/24 18:09 Alkaline Phosphatase 79 U/L (40-130) 11/27/24 18:09 Troponin T Baseline 26 ng/L (0-15) H 11/27/24 18:09 Troponin T 120 Minute 24.86 ng/L (0-15) H 11/27/24 19:27 Delta Troponin T -1.14 ABS# (0-10) L 11/27/24 19:27 NT-Pro-B Natriuret Pep 952 pg/mL (0-450) H 11/27/24 18:09 Total Protein 6.7 g/dL (6.6-8.7) 11/27/24 18:09 Albumin 4.1 g/dL (3.5-5.2) 11/27/24 18:09 Globulin 2.6 g/dL (1.3-4.6) 11/27/24 18:09 All radiology interpretation(s) finalized by discharge Discharge Plan Discharge Patient Disposition: Home Clinical Impression: Non-cardiac chest pain Condition: Stable Prescriptions: No Action aspirin 81 mg tablet,delayed release (DR/EC) 81 mg PO QAM (DME) right knee medial court assistant brace See Rx Instructions .Route .MEDSUPPLY Qty: 1 0RF Rx Instructions: As directed (DME) True Metrix Glucose Test Strip Strip See Rx Instructions .Route Qty: 100 5RF Rx Instructions: use to check blood sugar daily (DME) blood-glucose meter [Accu-Chek Guide Me Glucose Mtr] [facility] See Rx Instructions .ROUTE .COMPLEX Qty: 1 0RF Dose Instruction: USE DAILY Rx Instructions: USE DAILY dapagliflozin propanediol [Farxiga] 10 mg tablet 10 mg PO DAILY Qty: 30 2RF atorvastatin 40 mg tablet See Rx Instructions .ROUTE .COMPLEX Qty: 90 1RF Dose Instruction: TAKE 1 TABLET BY MOUTH EVERY MORNING Rx Instructions: TAKE 1 TABLET BY MOUTH EVERY MORNING benazepril-hydrochlorothiazide 10-12.5 mg tablet See Rx Instructions .ROUTE .COMPLEX Qty: 90 1RF Dose Instruction: TAKE 1 TABLET BY MOUTH EVERY DAY Rx Instructions: TAKE 1 TABLET BY MOUTH EVERY DAY donepezil 10 mg tablet See Rx Instructions .ROUTE .COMPLEX Qty: 90 0RF Dose Instruction: TAKE 1 TABLET BY MOUTH EVERY DAY Rx Instructions: TAKE 1 TABLET BY MOUTH EVERY DAY levothyroxine 150 mcg tablet 150 mcg PO DAILY Qty: 90 1RF Rx Instructions: TAKE 1 TABLET BY MOUTH EVERY DAY memantine 10 mg tablet See Rx Instructions .ROUTE .COMPLEX Qty: 90 1RF Dose Instruction: TAKE 1 TABLET BY MOUTH EVERY MORNING Rx Instructions: TAKE 1 TABLET BY MOUTH EVERY MORNING diclofenac sodium 75 mg tablet,delayed release (DR/EC) 75 mg PO Q12H PRN (Reason: pain) Qty: 20 0RF Discharge Orders: Discharge ED (Routine); Ordered 11/27/24 Ordered By: Shira Pang Referrals: LUPIS Aguilar, TRAINING REPRESENTATIVE [Primary Care Provider, Family Practice] Patient Instructions: Noncardiac Chest Pain (ED), Opioid Safety, Pain Management, Patient Portal & Nhung Instructions Activity Restrictions/Additional Instructions: Thank you for choosing [facility] for your healthcare needs today. You have been screened and evaluated and felt safe for discharge. Health conditions do change or evolve sometimes and as such it is important that you follow up with your Primary Doctor to be re checked, 3-5 days is a general good time frame for follow up. You are always welcome to return to the ED for re assessment if your symptoms are worsening or you have new concerns Print Language: Czech Coding Level of Care Code ED Recreational Vehicle Repairer for Zoe Moy
--- NOTE | 2024-11-27 18:15 | XRR_ITS ---
PROCEDURE INFORMATION: Exam: XR Chest Exam date and time: 11/27/2024 6:18 PM Age: 79 years old Clinical indication: Pain; Chest pressure and right-sided; Additional info: Chest pain TECHNIQUE: Imaging protocol: Radiologic exam of the chest. Views: 1 view. COMPARISON: CR XR chest 1V portable [id number] 12/15/2022 12:50 PM FINDINGS: Single view. Lungs: Unremarkable. No consolidation. Few scattered pulmonary granulomas. Pleural spaces: Unremarkable. No pleural effusion. No pneumothorax. Heart/Mediastinum: Aortic atherosclerosis. Unremarkable. No cardiomegaly. Bones/joints: Unremarkable. XR/XR chest 1V portable [id number] IMPRESSION: No acute findings.
[2024-11-27 18:18] LABS: Hematocrit 41.7 % (37-53); Hemoglobin 14.20 g/dL (11.27-16.99); Mean Corpuscular HGB Conc 34.1 g/dL (30-55); Mean Corpuscular Hemoglobin 32.0 pg (27-33); Mean Corpuscular Volume 93.9 fl (82-101); Nucleated Red Blood Cells % 0 %; Platelet Count 231 10^3/cmm (157-399); Red Blood Count 4.44 10^6/uL (3.85-5.65); White Blood Count 6.65 10^3/uL (3.29-11.43)
[2024-11-27 18:21] VITALS: BP 104/59; PULSE 62; RESP 15; O2SAT 94
[2024-11-27 18:38] LABS: Troponin(5th) Baseline 26 ng/L (0-15)
[2024-11-27 18:54] LABS: Alanine Aminotransferase 17 U/L (0-41); Albumin Level 4.1 g/dL (3.5-5.2); Alkaline Phosphatase 79 U/L (40-130); Anion Gap 16.0 (5-19); Aspartate Amino Transferase 20 U/L (0-40); Blood Urea Nitrogen 15 mg/dL (8-23); Calcium 9.0 mg/dL (8.5-10.5); Carbon Dioxide 23 mmol/L (22-29); Chloride 101 mmol/L (98-107); Creatinine Clr Calc Pharmacy 67.2088; Globulin 2.6 g/dL (1.3-4.6); Glucose 170 mg/dL (65-115); NT Pro B Type Natriuretic Pept 952 pg/mL (0-450); Osmolality Calculated 287 mOsm/kg (285-295); Potassium 4.0 mmol/L (3.5-5.1); Sodium 136 mmol/L (136-145); Total Protein 6.7 g/dL (6.6-8.7)
[2024-11-27 19:12] VITALS: BP 126/70; PULSE 62; RESP 17; O2SAT 96
[2024-11-27 19:52] LABS: Troponin 5 2HR 24.86 ng/L (0-15)
[2024-11-27 19:58] LABS: Troponin 5 2HR Delta -1.14 ABS# (0-10)
[2024-11-27 20:00] VITALS: BP 136/76; PULSE 64; O2SAT 94
--- NOTE | 2024-11-27 20:05 | ECG_ITS ---
[facility] Date: 2024-11-27 Pat Name: Gustavo Alford Department: Room: Gender: Male Marketing Production Specialist: : 1945 Requested By: Shira Gallegos Order Number: [id number] Everett MD: AN COLEMAN Measurements Intervals [place] Rate: 56 P: 54 [place]: 161 QRS: -61 QRSD: 170 T: 79 QT: 524 QTc: 506 Interpretive Statements SINUS BRADYCARDIA LEFT AXIS DEVIATION [QRS AXIS < -30] LEFT BUNDLE BRANCH BLOCK [120+ ms QRS DURATION, 80+ ms Q/S IN V1/V2, 85+ ms R IN I/aVL/V5/V6] Compared to ECG 11/27/2024 17:59:52 Left bundle-branch block now present Sinus rhythm no longer present Ventricular premature complex(es) no longer present Intraventricular conduction delay no longer present Electronically Signed On 11-28-2024 20:16:26 CDT by AN COLEMAN [email or web address] [id number]
[2024-11-27 20:51] VITALS: BP 136/76; PULSE 64; O2SAT 94
--- OUTSIDE RECORDS SUMMARY | 2024-11-29 12:17 | XMS_ITS | Clinical Summary ---
Author Organization [facility] 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
--- OUTSIDE RECORDS SUMMARY | 2024-11-29 12:17 | XMS_ITS | Clinical Summary ---
Author Organization [facility] Address [address] 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
== END 2024-11-27 20:11 | disposition home or self-care (01) ==
PROVIDERS: Emergency Provider Emergency Medicine; PCP Nurse Practitioner Family
DX: R07.89 Other chest pain (principal); Z79.82 Long term (current) use of aspirin; E11.9 Type 2 diabetes mellitus without complications; I10 Essential (primary) hypertension
CPT/HCPCS: 36415; 71045; 80053; 83880; 84484; 85025; 93005; 99285

== ENCOUNTER 2024-12-07 12:59 | Outpatient (CLI) | payer MEDICARE, SELFPAY ==
[2024-12-07 13:45] LABS: Free T4 Free Thyroxine 1.77 ng/dL (0.82-1.77); Magnesium 2.3 mg/dL (1.7-2.3); Thyroid Stimulating Hormone 0.30 uIU/mL (0.27-4.20)
== END 2024-12-07 13:00 | disposition home or self-care (01) ==
PROVIDERS: PCP Nurse Practitioner Family; Visit Provider Nurse Practitioner Family
DX: E03.9 Hypothyroidism, unspecified (principal); E11.9 Type 2 diabetes mellitus without complications
CPT/HCPCS: 36415; 81003; 83735; 84439; 84443

== ENCOUNTER → 2024-12-13 15:42 | Outpatient (BNVA) | payer MEDICARE, SELFPAY | PROVIDERS: PCP Nurse Practitioner Family; Visit Provider Internal Medicine | DX: R07.9 Chest pain, unspecified (principal); R06.02 Shortness of breath | CPT/HCPCS: 93005 ==

== ENCOUNTER 2025-01-15 08:28 | Outpatient (CLI) | payer MEDICARE, SELFPAY ==
--- NOTE | 2025-01-15 | ECG_ITS ---
[email or web address] Test Date: 2025-01-15 Pat Name: Gustavo Alford Department: Room: Gender: Male Vault Cashier: : 1945 Requested By: Satya Luong Order Number: [id number] Everett MD: Dean Yin M.D. Interpretive Statements Lung unchanged pre/post procedure; Intraprocedure shortess of breath; Symptoms resoled by discharge PROCEDURE: At the baseline, the EKG revealed sinus bradycardia with poor R wave progression. Left bundle branch block pattern. Nonspecific ST-T changes. The baseline heart was 53 bpm with a blood pressue of 128/77 mm of Hg Lexiscan was infused over a period of 20 seconds. A total of 0.4 milligrams of Lexiscan was infused. The stress phase was continued for a total of 5 minutes. Heart rate at the end of the stress phase was 72 bpm with a blood pressure 125/68 mm of Hg. The EKG at the peak infusion revealed no significant changes. Sestamibi was injected 20 seconds after the Lexiscan infusion. Heart rate at the end of the recovery phase was 67 bpm with a blood pressure of 122/64 mm of Hg. CONCLUSION: 1. No significant EKG changes with the LexiScan infusion 2. No LexiScan induced chest pain or cardiac arrhythmia 3. Normal blood pressure and heart rate response 4. Sestamibi/sestamibi perfusion scan pending; see separate report. Electronically Signed On 01-16-2025 22:42:55 CDT by Dean Yin M.D. [email or web address] [id number]
[2025-01-15 08:34] VITALS: BMI 21.9
--- NOTE | 2025-01-15 08:55 | NMCV_ITS ---
NM morales perf SPECT r/s* [id number] Gustavo Alford Age: 79 Gender: M : 1945 Exam Date: 01/15/2025 09:58 Ordering Phys: Satya Luong M.D ([email or web address]) Technologist: ITZEL Armenta Exam Location: [facility] Indications: cp STRESS TEST Please see separate stress test report in [facility] for full findings IMAGE PROTOCOL Rest/Stress 1 Lexiscan Day Radiopharmaceutical Dose (mCi) Administration Site Administered by Rest: Tc-99m 10.6 IV ITZEL Nguyen Sestamibi Stress:Tc-99m 32.4 IV ITZEL Armenta Sestamifrank Rest: 15-Jan-2025 60 Discovery 630 Stress: 15-Jan-2025 30 Discovery 630 0.4mg Lexiscan. Images obtained in supine and prone position. SPECT RESULTS Technical Quality: Good Raw Data Analysis: Normal Image Corrections: No attenuation or motion correction applied Summed Stress Score: 7 Summed Rest Score: 3 Summed Difference Score: 6 PERFUSION FINDINGS Moderate area of moderately decreased tracer uptake involving the basal and mid inferior and inferoseptal segments with significant reversibility FUNCTIONAL RESULTS (calculated via Gated SPECT) Stress Image LV EF (%): 61 Stress EDV (mL):120 TID: 0.95 Stress ESV (mL):47 FUNCTIONAL FINDINGS: Segmental wall motion analysis revealing no gross wall motion abnormalities. IMPRESSIONS 1. Myocardial perfusion imaging revealing moderate area of reversible defect involving the inferior and inferoseptal regions suggesting ischemia in the distribution of the right coronary artery. 2. Normal LV ejection fraction of 61%. 3. LV wall motion analysis revealing no gross wall motion abnormalities. 4. LV end-systolic volume, upper limit of normal, 47 mL. Compared to study from 07/25/2021, the ischemic burden appears to be more Dr Dean Yin MD [facility] (Electronically Signed) Final Date: 16 January 2025 09:01 S
[2025-01-15 10:54] VITALS: BP 122/64; PULSE 67
--- NOTE | 2025-01-15 14:15 | USCV_ITS ---
Gustavo Alford Age: 79 Gender: M : 1945 Exam Date: 01/15/2025 09:02 Ordering Phys: Satya Luong M.D ([email or web address]) Technologist: Exam Location: [facility] [place] Indication: cva BP: 130 / 70 HR: 62 Rhythm: Sinus Technical Quality: Adequate MEASUREMENTS (Male / Female) Normal Values 2D ECHO LV Diastolic Diameter PLAX 4.3 cm 4.2 - 5.9 / 3.9 - 5.3 cm IVS Diastolic Thickness 1.8 cm 0.6 - 1.0 / 0.6 - 0.9 cm IVS Systolic Thickness 2.1 cm LVPW Diastolic Thickness 2.0 cm 0.6 - 1.0 / 0.6 - 0.9 cm LVPW Systolic Thickness 2.4 cm LVOT Diameter 2.2 cm LV Ejection Fraction 2D Teich 65.0 % LV Ejection Fraction MOD 4C 69.5 % LV Ejection Fraction MOD 2C 62.7 % LV Ejection Fraction 2C AL 63.5 % LA Diameter 3.6 cm RA Systolic Volume 4C AL 55.7 ml RA Systolic Volume 4C MOD 52.2 ml Aorta at Sinotubular Diameter 3.5 cm IVC Diameter 1.4 cm M-MODE LA Ao Ratio MM 1.1 AV Cusp Separation MM 2.0 cm DOPPLER AV Peak Velocity 85.0 cm/s LVOT Peak Velocity 62.0 cm/s AV Area Cont Eq vti 2.5 cm squared AV Area Cont Eq pk 2.7 cm squared MV Peak Velocity 90.0 cm/s MV Area PHT 3.9 cm squared Mitral E to A Ratio 1.2 TV Peak Velocity 180.0 cm/s TR Peak Velocity 183.0 cm/s TR Peak Gradient 13.4 mmHg TV Peak E Velocity 68.0 cm/s PV Peak Velocity 98.0 cm/s FINDINGS Left Ventricle Normal left ventricular size and systolic function, EF 60-65%. No regional wall motion abnormalities. Severe left ventricular hypertrophy. Right Ventricle Normal right ventricular size and systolic function. Right Atrium Normal right atrial size. No evidence of intracardiac shunting Left Atrium Normal left atrial size. IA Septum No evidence of intracardiac shunting Mitral Valve Structurally normal mitral valve. Mild mitral regurgitation Aortic Valve Grossly normal. No significant stenosis or regurgitation. Tricuspid Valve Mild tricuspid valve regurgitation. Pulmonary artery systolic pressure is normal. Pulmonic Valve Not well visualized Pericardium Normal Aorta Normal in size IVC Appears to be normal CONCLUSIONS LV systolic function is normal with EF of 60-65% Severe LVH No evidence of intracardiac shunting Mild mitral regurgitation Mild tricuspid valve regurgitation. Satya Luong MD (Electronically Signed) Final Date: 21 January 2025 12:23 S
== END 2025-01-15 08:29 | disposition home or self-care (01) ==
PROVIDERS: PCP Nurse Practitioner Family; Visit Provider Internal Medicine
DX: R07.9 Chest pain, unspecified (principal); R06.02 Shortness of breath; I51.7 Cardiomegaly; I34.0 Nonrheumatic mitral (valve) insufficiency; I36.1 Nonrheumatic tricuspid (valve) insufficiency; I21.11 ST elevation (STEMI) myocardial infarction involving right coronary artery
CPT/HCPCS: 36415; 78452; 93017; 96374; A9500; C8929; J2785

== ENCOUNTER → 2025-02-01 15:32 | Outpatient (BNVA) | payer MEDICARE, SELFPAY | PROVIDERS: PCP Nurse Practitioner Family; Visit Provider Nurse Practitioner Family | DX: I10 Essential (primary) hypertension (principal); E11.9 Type 2 diabetes mellitus without complications; E55.9 Vitamin D deficiency, unspecified; E78.5 Hyperlipidemia, unspecified; E03.9 Hypothyroidism, unspecified; R53.83 Other fatigue | CPT/HCPCS: 80053; 80061; 81003; 82306; 82607; 82746; 83036; 83550; 83735; 84443; 85025 ==

== ENCOUNTER → 2025-04-17 09:23 | Outpatient (BNVA) | payer MEDICARE, SELFPAY | PROVIDERS: PCP Nurse Practitioner Family; Visit Provider Physician Assistant | DX: M17.11 Unilateral primary osteoarthritis, right knee (principal); Z71.89 Other specified counseling | CPT/HCPCS: 20610; 73560; 73565; 99213; J7318 ==